=== PATIENT | male | born 1985 | race Caucasian/White ===

== ENCOUNTER 2016-07-27 17:17 | Emergency (ER) | payer OTHER ==
--- NOTE | 2016-08-06 18:05 | ER ---
ADMIT: 07/27/2016 RM/LOC: ER [facility] MR#: [id number] [address] [id number] ARUELIANO LYNDON [address] [place] [address] Emergency Room Report SEX: M AGE: 31 : 1985 DATE: 07/27/2016 See T-sheet for complete H and P. ADDENDUM: A 31-year-old male, comes in with symptoms of vertigo. He states he has room spinning, which is worse when he moves his head in certain positions. It has been going on since he awoke this morning intermittently. He does do construction. He notes that when he has moved his head in certain positions today has definitely brought on his symptoms of room spinning. He has not had any nausea or vomiting and has no other cold symptoms or neurologic symptoms. His physical exam is unremarkable. He did have symptoms of vertigo when he laid him back in the Emergency Department. He was given Valium p.o. and meclizine and his symptoms were significantly improved here. He is discharged home to use meclizine as needed for vertigo or return to the ER for any concerning symptoms. Otherwise, follow up with Dr. Quintana if not improving. Zion Chino MD/ ben JOB #: [id number] CC: Zion Chino MD, Attending Physician Quan Quintana MD, Family Physician
== END 2016-07-27 18:30 | disposition home or self-care (01) ==
LOC: ER 17:17
DX: R42 Dizziness and giddiness (principal)